=== PATIENT | male | born 1985 | race African-American/Black ===

== ENCOUNTER 2017-06-12 12:38 | Emergency (ER) | payer MEDICAID ==
[~2017-06-12] VITALS: Ht 182.9 cm; Wt 82.8 kg
[2017-06-12 13:14] LABS: CLARITY,URINE SLIGHTLY CLOUDY (Clear); COLOR,URINE YELLOW (Yellow); GLUCOSE, URINE NEGATIVE (Neg); KETONES,URINE TRACE mg/dl (Neg); LEUKOCYTE ESTERASE ,URINE NEGATIVE (Neg); NITRITES, URINE NEGATIVE (Neg); OCCULT BLOOD,URINE MODERATE (Neg); PROTEIN,URINE 30 mg/dl (Neg)
[2017-06-12 13:28] LABS: UA COLLECTION TYPE CLN CATCH MIDSTREAM
[2017-06-12 13:29] LABS: ALANINE AMINOTRANSFERASE 39 U/L (12-78); ALBUMIN 3.9 G/DL (3.4-5.0); ALBUMIN/GLOBULIN RATIO 0.9 (1.1-1.5); ALKALINE PHOSPHATASE 74 IU/L (46-116); ANION GAP 10 (8-16); ASPARTATE AMINO TRANSFERASE 26 U/L (10-37); BILIRUBIN,TOTAL 0.3 MG/DL (0.1-1.0); BLOOD UREA NITROGEN 11 MG/DL (7-18); BUN/CREATININE RATIO 9.5 (5.4-32.0); CALCIUM 9.1 MG/DL (8.5-10.1); CHLORIDE 100 MMOL/L (99-107); CREATININE 1.16 MG/DL (0.60-1.10); GLUCOSE 93 MG/DL (70-104); POTASSIUM 3.6 MMOL/L (3.5-5.1); SODIUM 139 MMOL/L (135-145); TOTAL CARBON DIOXIDE 28.9 MMOL/L (24-32); TOTAL PROTEIN 8.4 G/DL (6.4-8.2); eGFR 88 ML/MIN
[2017-06-12 13:29] LABS: BACTERIA,URINE NONE SEEN /HPF (Neg); MUCUS STRANDS MANY /LPF (Neg); SQUAMOUS EPITHELIAL CELL,UR FEW /LPF (FEW); WBC,URINE 0-4 /HPF (0-4)
[2017-06-12 13:30] LABS: HYALINE CASTS 0-3 /LPF (NEGATIVE)
[2017-06-12 13:32] LABS: BASOPHILS % (AUTO) 0.3 % (0-1); EOSINOPHILS % (AUTO) 0.4 % (0-6); HEMATOCRIT 43.7 % (42.0-52.0); HEMOGLOBIN 14.4 g/dl (14.0-17.9); LYMPHOCYTES # (AUTO) 1.6 X10'3 (1.1-4.8); LYMPHOCYTES % (AUTO) 30.9 % (21-51); MEAN CORPUSCULAR HEMOGLOBIN 27.5 PG (27.0-31.0); MEAN CORPUSCULAR VOLUME 83.3 FL (78-98); MONOCYTES # (AUTO) 0.9 X10'3 (0-0.9); MONOCYTES % (AUTO) 17.6 % (2-12); NEUTROPHILS # (AUTO) 2.7 X10'3 (1.8-7.7); NEUTROPHILS % (AUTO) 50.8 % (42-75); PLATELET COUNT 238 X10'3 (140-440); RED BLOOD COUNT 5.24 X10'6 (4.70-6.10); RED CELL DISTRIBUTION WIDTH 14.1 % (11.5-14.5); WHITE BLOOD COUNT 5.2 X10'3 (4.5-11.0)
[2017-06-12 14:13] LABS: TOTAL CELLS COUNTED 100
[2017-06-12 14:15] LABS: PLATELET ESTIMATE NORMAL
[2017-06-12] MEDS ORDERED: albuterol 2.5 MG/3 ML nebule ONE (14:29)
[2017-06-12] MEDS ORDERED: albuterol 2.5 MG/3 ML nebule NEB ONE (14:30)
[2017-06-12] MEDS ORDERED: ALBU18HF2 INH (14:44)
[2017-06-12 15:05] VITALS: BP 133/87
== END 2017-06-12 15:07 | disposition home or self-care (01) ==
LOC: ER 12:38
DX: J98.01 Acute bronchospasm (principal); R05 Cough; Z88.8 Allergy status to other drugs, medicaments and biological substances
CPT/HCPCS: 36415; 80053; 81001; 85025; 85610; 94640; 94760; 99284

== ENCOUNTER 2017-09-27 10:11 | Emergency (ER) | payer MEDICAID ==
[~2017-09-27] VITALS: Ht 182.9 cm; Wt 83.0 kg
[~2017-09-27 10:11] MED LIST: ALBU18HF2 INH; NAPR-56 PO; TRAM50TA2 PO
[2017-09-27 10:27] VITALS: BP 126/72
[2017-09-27] MEDS ORDERED: TOBR5DRO2 OP (11:42)
== END 2017-09-27 11:51 | disposition home or self-care (01) ==
LOC: ER 10:12
DX: H10.9 Unspecified conjunctivitis (principal); Z88.8 Allergy status to other drugs, medicaments and biological substances; Z79.899 Other long term (current) drug therapy
CPT/HCPCS: 99283

== ENCOUNTER 2019-10-06 19:54 | Emergency (ER) | payer MEDICAID ==
[~2019-10-06] VITALS: Ht 182.9 cm; Wt 90.9 kg
[~2019-10-06 19:54] MED LIST changes: -NAPR-56 PO; +TOBR5DRO2 OP; -TRAM50TA2 PO
[2019-10-06 19:57] VITALS: BP 137/96
[2019-10-06] MEDS ORDERED: FLUT16SP2 BOTHNARES (20:05)
[2019-10-06] MEDS ORDERED: LORA10CA PO (20:05)
[2019-10-06] MEDS ORDERED: ALBU8HFA PO (20:05)
== END 2019-10-06 20:13 | disposition home or self-care (01) ==
LOC: ER 19:55
DX: J30.9 Allergic rhinitis, unspecified (principal); F17.200 Nicotine dependence, unspecified, uncomplicated; Z88.8 Allergy status to other drugs, medicaments and biological substances; Z79.899 Other long term (current) drug therapy
CPT/HCPCS: 99283

== ENCOUNTER 2024-09-14 22:18 | Emergency (ER) | payer MEDICAID ==
[~2024-09-14] VITALS: Ht 185.4 cm; Wt 94.8 kg
[~2024-09-14 22:18] MED LIST changes: +FLUT16SP2 BOTHNARES; +LORA10CA PO
[2024-09-14 22:36] VITALS: BP 148/100
[2024-09-14] MEDS ORDERED: PRED20TA PO (22:48)
[2024-09-14] MEDS ORDERED: ALBU18HF2 INH (22:48)
[2024-09-14] MEDS: albuterol 2.5 MG/3 ML nebule NEB ONE (23:07)
[2024-09-14 23:08] VITALS: TEMP 99.3
[2024-09-14 23:09] VITALS: PULSE 96; RESP 18; O2SAT 97
[2024-09-14 23:13] VITALS: PULSE 84; RESP 18; O2SAT 99
[2024-09-15] MEDS ORDERED: ALBU18HF2 INH (14:07)
[2024-09-15] MEDS ORDERED: PRED20TA PO (14:07)
== END 2024-09-14 23:15 | disposition home or self-care (01) ==
LOC: ER 22:18
DX: J45.901 Unspecified asthma with (acute) exacerbation (principal); Z88.8 Allergy status to other drugs, medicaments and biological substances
CPT/HCPCS: 93005; 94640; 99283

== ENCOUNTER 2024-09-15 12:59 | Emergency (ER) | payer MEDICAID ==
[~2024-09-15] VITALS: Ht 185.4 cm; Wt 113.6 kg
[~2024-09-15 12:59] MED LIST changes: +PRED20TA PO
[2024-09-15] MEDS: ipratropium/albuterol 3ml nebule NEB ONE (13:18)
[2024-09-15 13:19] VITALS: PULSE 78; RESP 18; O2SAT 98
[2024-09-15 13:22] VITALS: TEMP 97.5
[2024-09-15 13:25] VITALS: PULSE 86; RESP 19; O2SAT 98
[2024-09-15] MEDS ORDERED: PRED20TA PO (14:07)
[2024-09-15] MEDS ORDERED: ALBU18HF2 INH (14:07)
[2024-09-15 14:14] VITALS: BP 139/98; PULSE 74; RESP 15; O2SAT 98
[2024-09-15] MEDS: predniSONE 20 mg tablet PO ONE (14:14)
== END 2024-09-15 19:46 | disposition home or self-care (01) ==
LOC: ER 12:59
DX: J45.901 Unspecified asthma with (acute) exacerbation (principal); Z88.8 Allergy status to other drugs, medicaments and biological substances
CPT/HCPCS: 94640; 99283; J7512; 94760

== ENCOUNTER 2024-09-18 19:22 | Emergency (ER) | payer MEDICAID ==
[~2024-09-18] VITALS: Ht 185.4 cm; Wt 74.2 kg
[2024-09-18 19:29] VITALS: BP 146/98; PULSE 103; RESP 20; TEMP 97.6; O2SAT 98
== END 2024-09-18 20:43 | disposition left against medical advice (07) ==
LOC: ER 19:23
DX: R06.02 Shortness of breath (principal); R05.9 Cough, unspecified; Z88.8 Allergy status to other drugs, medicaments and biological substances; Z53.21 Procedure and treatment not carried out due to patient leaving prior to being seen by health care provider

== ENCOUNTER 2024-10-06 11:44 | Emergency (ER) | payer MEDICAID ==
[~2024-10-06] VITALS: Ht 185.4 cm; Wt 91.4 kg
[2024-10-06 11:44] VITALS: BP 108/60; PULSE 80; RESP 16; TEMP 98; O2SAT 100
--- NOTE | 2024-10-06 11:51 | Physician Documentation ---
History of Present Illness ~ Chief Complaint: Head Injury [facility]ated [facility] OK to notify your PCP?: No Primary Medical Doctor: [facility] Patient presents with a complaint of an abrasion on the left side of his face. Smells of alcohol states he does not how I encouraged the abrasion. Tetanus within 5 years?: Yes Medication Reconciliation Allergies: Coded Allergies: pseudoephedrine (Verified Allergy, Severe, ANGIOEDEMA, 09/18/24) Scheduled Albuterol Sulfate (Ventolin Hfa), 2 PUFFS INH Q4HPRN Albuterol Sulfate (Ventolin Hfa), 2 PUFFS INH Q4HPRN Fluticasone Propionate (Flonase), 2 SPRAYS BOTHNARES DAILY Loratadine (Claritin), 1 CAP PO DAILY Prednisone* (Prednisone*), 2 TAB PO DAILY Tobramycin Sulfate/Dexameth (Tobradex Eye Drops), 5 ML OP Q6H Past Medical History Past Medical History: Asthma Past Surgical History: no surgical history Alcohol Use: None Drug Use: none Lives with: Family Lives In: Home Occupation: employed Physical Exam Vital Signs: Temperature: 98.0, Source: Temporal, Heart Rate: 80, Respiratory Rate: 16, BP: 108/60, Pulse Oximetry: 100, Weight: 91.400 Oxygen Flow Rate: 0 Physical Exam General: Alert, no apparent distress. HEENT: PERRL, EOMI, no injection, moist mucous membranes. Psychiatric: Normal mood and affect. Skin: Normal color, warm and dry. No edema, no ecchymosis. Progress Results/Orders Results/Orders Vital Signs 10/06/24 11:44 Temp 98.0 Pulse 80 Resp 16 B/P (MAP) 108/60 Pulse Ox 100 O2 Flow Rate 0 Medical Decision Making Findings k Departure Disposition: 07 LEFT AWOL/ELOPED Impression: Primary Impression: Superficial bruising Referrals: NO PRIMARY CARE PROVIDER (PCP) Signature Scribe Signature: 6 Attestation: The note accurately reflects work and decisions made by me.Shaun Tristan NP 10/06/24 14:46 SHAUN MENDES NP October 06, 2024 11:51
== END 2024-10-06 13:25 | disposition left against medical advice (07) ==
LOC: ER 11:44
DX: S00.83XA Contusion of other part of head, initial encounter (principal); Z88.8 Allergy status to other drugs, medicaments and biological substances; J45.909 Unspecified asthma, uncomplicated; X58.XXXA Exposure to other specified factors, initial encounter; Y93.89 Activity, other specified; Y92.89 Other specified places as the place of occurrence of the external cause; Y99.8 Other external cause status
CPT/HCPCS: 99283

== ENCOUNTER 2024-10-11 07:26 | Emergency (ER) | payer MEDICAID ==
[~2024-10-11] VITALS: Ht 185.4 cm; Wt 92.4 kg
[2024-10-11 07:27] VITALS: TEMP 97.8
--- NOTE | 2024-10-11 07:48 | Physician Documentation ---
History of Present Illness ~ General Chief Complaint: See Chief Complaint Stated Complaint: ABD PAIN Time Seen by MD: 07:37 Primary Medical Doctor: [facility] Source: patient Mode of Arrival: POV Exam Limitations: no limitations History of Present Illness Initial Comments Chief Complaint: Bruising over right lower abdominal wall Caveat: None Independent Historians: None History of Present Illness: Patient is a 47-year-old man who comes in complaining of bruising over his right lower abdominal wall. Patient denies any trauma. Patient noted this two weeks ago and also has some bruising over the knees. Patient denies any medications, aspirin use. Patient's pain is six to 8/10 over the right lower abdominal wall. Patient denies the intra-abdominal pain. No nausea or vomiting. No fever. Patient denies any anticoagulant use. Patient denies daily alcohol use. Review of systems: All systems were reviewed and are negative except for what is indicated in the history of present illness. Past Medical History: None the patient Past Surgical History: Noncontributory Social History: Denies alcohol use, denies tobacco use, denies drug use Medications: Reviewed as documented Nursing Notes Allergies: Reviewed as documented in Nursing Notes Medication Reconciliation Allergies: Coded Allergies: pseudoephedrine (Verified Allergy, Severe, ANGIOEDEMA, 09/18/24) Scheduled Albuterol Sulfate (Ventolin Hfa), 2 PUFFS INH Q4HPRN Albuterol Sulfate (Ventolin Hfa), 2 PUFFS INH Q4HPRN Fluticasone Propionate (Flonase), 2 SPRAYS BOTHNARES DAILY Loratadine (Claritin), 1 CAP PO DAILY Prednisone* (Prednisone*), 2 TAB PO DAILY Tobramycin Sulfate/Dexameth (Tobradex Eye Drops), 5 ML OP Q6H Past Medical History Past Medical History: Asthma Past Surgical History: no surgical history Alcohol Use: None Drug Use: none Lives with: Family Lives In: Home Occupation: employed Review of Systems All Other Systems at this time: Reviewed and Negative ROS Patient denies any other acute symptoms other than above. All other systems are negative Physical Exam Physical Exam Vital Signs: Temperature: 97.8, Source: Oral, Heart Rate: 92, Respiratory Rate: 16, BP: 153/94, Pulse Oximetry: 99, Weight: 92.400 Oxygen Flow Rate: 0 Pulse Oximetry Reflects: adequate oxygenation Physical Exam General Appearance: No distress HEENT: Normal OP, moist oral mucosa, PERRL, EOMI, no bleeding from gums Neck: supple, normal ROM, trachea midline Pulmonary: No respiratory distress, CTA, BS equal Cardiac: RRR, no murmur, rub or gallop, GI: nondistended, soft, nontender, normal bowel sounds, no guarding, no rebound , ecchymosis and hematoma over the right lower abdominal wall Back: No evidence of ecchymosis, hourly normal-appearing Extremities: normal ROM, no swelling, non-tender Skin: intact, dry, warm, no rashes, ecchymosis and hematoma over the right lower abdominal wall, no other areas of ecchymosis identified. Neuro: AAOx3, speech is clear, no focal motor weakness Psych: normal affect, good eye contact, no apparent hallucination, normal speech Progress Results/Orders Results/Orders Orders - MARIE SALEH MD Urinalysis, Cult If Indicated (10/11/24 07:48) Completed Orders - MARIE SALEH MD Cbc/Diff (10/11/24 07:48) BMP (10/11/24 07:48) PTT (10/11/24 07:48) Pt Inr (10/11/24 07:48) Lipase (10/11/24 07:48) Vital Signs 10/11/24 07:27 Temp 97.8 Pulse 92 Resp 16 B/P (MAP) 153/94 Pulse Ox 99 O2 Flow Rate 0 Laboratory Tests Test 10/11/24 08:12 White Blood Count 6.4 Red Blood Count 4.74 Hemoglobin 12.6 L Hematocrit 38.7 L Mean Corpuscular Volume 81.7 Mean Corpuscular Hemoglobin 26.6 L Mean Corpuscular Hemoglobin Concent 32.6 L Red Cell Distribution Width 15.1 H Platelet Count 250 Mean Platelet Volume 7.5 Neutrophils (%) (Auto) 55.2 Lymphocytes (%) (Auto) 29.3 Monocytes (%) (Auto) 9.2 Eosinophils (%) (Auto) 5.3 Basophils (%) (Auto) 1.0 Neutrophils # (Auto) 3.5 Lymphocytes # (Auto) 1.9 Monocytes # (Auto) 0.6 Eosinophils # (Auto) 0.3 Basophils # (Auto) 0.1 CBC Comment Prothrombin Time 10.4 INR International Normalized Ratio 1.0 Activated Partial Thromboplast Time 28 Coagulation Comments Sodium Level 144 Potassium Level 3.6 Chloride Level 106 Carbon Dioxide Level 30.4 Anion Gap 8 Blood Urea Nitrogen 8 Creatinine 0.96 Estimated GFR/1.73 m2 > 90 BUN/Creatinine Ratio 8.3 L Glucose Level 83 Calcium Level 8.4 L Albumin 3.3 L Lipase 10 L Chemistry Comments Medical Decision Making Findings Differential diagnosis includes but is not limited to: Trauma, coagulopathy, aspirin use, thrombocytopenia, bleeding disorder Laboratory data independent interpretation: CBC: Unremarkable CMP: Unremarkable Coags: Normal Emergency department course/medical decision-making: Patient is presenting with hematoma over the right lower abdominal wall. Patient does not have a coagulopathy or is using aspirin or Motrin. Patient likely had some trauma that he does not recall. Patient's exam is consistent with a hematoma. Apply warm compresses and take Advil and Tylenol for pain. Patient was stable for discharge. Departure Time of Disposition: 08:57 Disposition: 01 HOME / SELF CARE / HOMELESS Impression: Primary Impression: Hematoma Condition: Stable Discharge Instructions: Hematoma, [id number] Additional Instructions: TAKE ADVIL AND TYLENOL FOR PAIN. APPLY WARM COMPRESSES. THIS WILL TAKE SEVERAL WEEKS TO RESOLVE. THE CAUSE HAS NOT BEEN IDENTIFIED. YOU DO NOT HAVE A COAGULOPATHY OR BLEEDING DISORDER. Education Educated: Patient Educated regarding: diagnosis, treatment, need for follow up Signature Scribe Signature: NO SCRIBE Attestation: NO SCRIBE MARIE SALEH MD October 11, 2024 07:48
[2024-10-11 08:35] LABS: BASOPHILS # (AUTO) 0.1 X10'3 (0-0.2); EOSINOPHILS # (AUTO) 0.3 X10'3 (0-0.9); EOSINOPHILS % (AUTO) 5.3 % (0-6); HEMATOCRIT 38.7 % (42.0-52.0); HEMOGLOBIN 12.6 g/dl (14.0-17.9); LYMPHOCYTES # (AUTO) 1.9 X10'3 (1.1-4.8); LYMPHOCYTES % (AUTO) 29.3 % (21-51); MEAN CORPUSCULAR HEMOGLOBIN 26.6 PG (27.0-31.0); MEAN CORPUSCULAR HGB CONC 32.6 g/dL (33.0-36.5); MEAN CORPUSCULAR VOLUME 81.7 FL (78-98); MEAN PLATELET VOLUME 7.5 FL (7.4-10.4); MONOCYTES # (AUTO) 0.6 X10'3 (0-0.9); MONOCYTES % (AUTO) 9.2 % (2-12); NEUTROPHILS # (AUTO) 3.5 X10'3 (1.8-7.7); NEUTROPHILS % (AUTO) 55.2 % (42-75); PLATELET COUNT 250 X10'3 (140-440); RED BLOOD COUNT 4.74 X10'6 (4.70-6.10); RED CELL DISTRIBUTION WIDTH 15.1 % (11.5-14.5); WHITE BLOOD COUNT 6.4 X10'3 (4.5-11.0)
[2024-10-11 08:37] LABS: ALBUMIN 3.3 G/DL (3.4-5.0); ANION GAP 8 (8-16); BLOOD UREA NITROGEN 8 MG/DL (7-18); BUN/CREATININE RATIO 8.3 (10.0-20.0); CALCIUM 8.4 MG/DL (8.5-10.1); CHLORIDE 106 MMOL/L (99-107); CREATININE 0.96 MG/DL (0.60-1.10); GLUCOSE 83 MG/DL (70-104); LIPASE 10 U/L (16-77); POTASSIUM 3.6 MMOL/L (3.5-5.1); SODIUM 144 MMOL/L (135-145); TOTAL CARBON DIOXIDE 30.4 MMOL/L (24-32); eCRCL 117 ML/MIN; eGFR > 90 ML/MIN
[2024-10-11 08:39] LABS: APTT 28 SECONDS (22-32); PROTHROMBIN TIME 10.4 SECONDS (9.0-12.0)
[2024-10-11 09:01] VITALS: BP 140/100; PULSE 85; RESP 18; O2SAT 98
== END 2024-10-11 07:50 | disposition home or self-care (01) ==
LOC: ER 07:27
DX: S30.1XXA Contusion of abdominal wall, initial encounter (principal); J45.909 Unspecified asthma, uncomplicated; Z88.8 Allergy status to other drugs, medicaments and biological substances; Z79.899 Other long term (current) drug therapy; X58.XXXA Exposure to other specified factors, initial encounter; Y93.89 Activity, other specified; Y92.89 Other specified places as the place of occurrence of the external cause; Y99.8 Other external cause status
CPT/HCPCS: 36415; 80048; 83690; 85025; 85610; 85730; 99282; 99283

== ENCOUNTER 2024-11-02 15:02 | Emergency (ER) | payer MEDICAID ==
[~2024-11-02] VITALS: Ht 185.4 cm; Wt 87.7 kg
--- NOTE | 2024-11-02 16:34 | Physician Documentation ---
History of Present Illness ~ Chief Complaint: Foot pain Stated Complaint: BURNING FEET Time Seen by MD: 16:08 Primary Medical Doctor: [facility] HPI Bail known homeless person reports increased burning and tingling in his bilateral lower extremities. States he has a walk a lot in his developed this pain. He thinks it is related to a previous blister. He also states he might be prediabetic. Day of Onset: November 02, 2024 Tetanus witin 5 years: Yes Medication Reconciliation Allergies: Coded Allergies: pseudoephedrine (Verified Allergy, Severe, ANGIOEDEMA, 11/02/24) Scheduled Albuterol Sulfate (Ventolin Hfa), 2 PUFFS INH Q4HPRN Albuterol Sulfate (Ventolin Hfa), 2 PUFFS INH Q4HPRN Fluticasone Propionate (Flonase), 2 SPRAYS BOTHNARES DAILY Loratadine (Claritin), 1 CAP PO DAILY Prednisone* (Prednisone*), 2 TAB PO DAILY Tobramycin Sulfate/Dexameth (Tobradex Eye Drops), 5 ML OP Q6H Past Medical History Past Medical History: Asthma Past Surgical History: no surgical history Alcohol Use: None Drug Use: none Lives with: Family Lives In: Home Occupation: employed Review of Systems All Other Systems at this time: Reviewed and Negative ROS As stated above in the HPI, otherwise all systems are reviewed and negative. Physical Exam Vital Signs: Temperature: 99.1, Source: Temporal, Heart Rate: 93, Respiratory Rate: 20, BP: 144/88, Pulse Oximetry: 99, Weight: 87.700 Oxygen Flow Rate: 0 Physical Exam General: Alert, no apparent distress. Extremities: Normal range of motion, no deformity. Neurologic: Oriented x4. Psychiatric: Normal mood and affect. Skin: Normal color, warm and dry. No edema, no ecchymosis. Progress Results/Orders Results/Orders Orders - SHAUN MENDES NP Accucheck (11/02/24 ) Vital Signs 11/02/24 15:24 Temp 99.1 Pulse 93 Resp 20 B/P (MAP) 144/88 Pulse Ox 99 O2 Flow Rate 0 Departure Disposition: 01 HOME / SELF CARE / HOMELESS Impression: Primary Impression: Foot pain Condition: Stable Referrals: NO PRIMARY CARE PROVIDER (PCP) Signature Scribe Signature: g Attestation: The note accurately reflects work and decisions made by me.Shaun Mendes - HATTIE 11/02/24 16:34 SHAUN MENDES NP November 02, 2024 16:34
[2024-11-02 17:03] VITALS: BP 146/84; PULSE 76; RESP 16; TEMP 99.1; O2SAT 97
== END 2024-11-02 17:05 | disposition home or self-care (01) ==
LOC: ER 15:03
DX: M79.672 Pain in left foot (principal); M79.671 Pain in right foot; J45.909 Unspecified asthma, uncomplicated; Z88.8 Allergy status to other drugs, medicaments and biological substances; Z59.00 Homelessness unspecified; Z79.899 Other long term (current) drug therapy
CPT/HCPCS: 82948; 99282

== ENCOUNTER 2024-11-04 19:49 | Emergency (ER) | payer MEDICAID ==
[~2024-11-04] VITALS: Ht 188 cm; Wt 95.5 kg
[2024-11-04 19:54] VITALS: BP 138/107; PULSE 113; RESP 24; O2SAT 95
--- NOTE | 2024-11-04 21:35 | Physician Documentation ---
History of Present Illness ~ Chief Complaint: Foot pain Stated Complaint: FOOT PAIN Time Seen by MD: 21:15 Primary Medical Doctor: [facility] This 39-year-old male with history of diabetes who presents with one month of bilateral burning pain to feet. Patient reports no other acute symptoms or concerns. Tetanus witin 5 years: Yes (2020) Medication Reconciliation Allergies: Coded Allergies: pseudoephedrine (Verified Allergy, Severe, ANGIOEDEMA, 11/04/24) Scheduled Albuterol Sulfate (Ventolin Hfa), 2 PUFFS INH Q4HPRN Albuterol Sulfate (Ventolin Hfa), 2 PUFFS INH Q4HPRN Fluticasone Propionate (Flonase), 2 SPRAYS BOTHNARES DAILY Gabapentin (Neurontin), 1 CAP PO Q8H Loratadine (Claritin), 1 CAP PO DAILY Prednisone* (Prednisone*), 2 TAB PO DAILY Tobramycin Sulfate/Dexameth (Tobradex Eye Drops), 5 ML OP Q6H Past Medical History Past Medical History: Asthma, Diabetes Past Surgical History: no surgical history Alcohol Use: None Drug Use: none Lives with: Family Lives In: Home Occupation: employed Review of Systems ROS Burning pain and feet as stated above in the HPI, otherwise all systems are reviewed and negative. Physical Exam Vital Signs: Temperature: 98.4, Source: Oral, Heart Rate: 113, Respiratory Rate: 24, BP: 138/107, Pulse Oximetry: 95, Weight: 95.450 Physical Exam VITALS: Reviewed and as above. GENERAL: Alert, nontoxic appearing, no apparent distress. RESPIRATORY: No increased work of breathing, no respiratory distress, speaking in full clear sentences SKIN: Skin of bilateral feet dry intact, distal pulses intact, brisk capillary refill in toes of feet Progress Results/Orders Results/Orders Completed Orders - LIDIA MIR Gabapentin Capsule (Neurontin Capsule) (11/04/24 21:40) Medications Received in ER Medications (Trade) Dose Ordered Sig/Makayla Route PRN Reason Start Time Stop Time Status Last Admin Dose Admin (Neurontin capsule) 300 mg ONCE ONCE PO 11/04/24 21:40 11/04/24 21:41 DC 11/04/24 23:06 300 MG Vital Signs 11/04/24 11/04/24 19:54 23:03 Temp 98.4 98.4 Pulse 113 Resp 24 B/P (MAP) 138/107 Pulse Ox 95 Medical Decision Making Findings This is a 39-year-old male with history of diabetes presented with one month of burning pain to bilateral feet, symptoms are consistent with peripheral neuropathy especially given patient's history of diabetes, circulation appear to be intact with brisk capillary refill to the toes and strong pedal pulses. The skin of the feet were intact without evidence of injury. Patient was otherwise well-appearing with benign physical exam, tachycardia on triage likely related to patient's recent methamphetamine use. Patient initiated on gabapentin for n europathic pain in structure to follow up with primary care provider for further management of neuropathic pain. Patient provided return to care precautions. Foot Diff Dx:Considerations: Include: Abrasion, Arthritis, Cellulitis, Gout, Ingrown toenail, Laceration, Neurovascular injury, Sprain, Septic, Ulcer Departure Disposition: HOME / SELF CARE / HOMELESS Impression: Primary Impression: Foot pain Qualified Codes: M79.671 - Pain in right foot; M79.672 - Pain in left foot Condition: Improved Discharge Instructions: Peripheral Neuropathy Additional Instructions: I believe your pain may be from condition called peripheral neuropathy most likely related to your diabetes, you will need to see your primary care provider for further follow up and continue the medication I am starting you on. You will receive one dose of this medication tonight, take two doses of the medication tomorrow, and then the day after that begin taking three doses each day. Please follow up with your primary care provider in the next few days. Please return to the emergency department for any new or worsening concerning symptoms. Referrals: NO PRIMARY CARE PROVIDER (PCP) Prescriptions Gabapentin (Neurontin) 300 Mg Capsule 1 CAP PO Q8H for 30 Days, #90 CAP 0 Refills Take two doses on the first 1st day (11/05/24), each dose 12 hours apart. Prov: LIDIA MIR 11/04/24 Education Educated: Patient Educated regarding: diagnosis, treatment, prognosis, need for follow up Signature Scribe Signature: No scribe Attestation: The note accurately reflects work and decisions made by me.JJ Duque 11/05/24 01:41 LIDIA MIR Nov 04, 2024 21:35
[2024-11-04] MEDS ORDERED: GABA300C PO (21:38)
[2024-11-04 23:03] VITALS: TEMP 98.4
[2024-11-04] MEDS: gabapentin 300mg capsule PO ONE (23:06)
== END 2024-11-04 23:09 | disposition home or self-care (01) ==
LOC: ER 19:50
DX: M79.671 Pain in right foot (principal); M79.672 Pain in left foot
CPT/HCPCS: 99283

== ENCOUNTER 2024-11-15 04:24 | Emergency (ER) | payer MEDICAID ==
[~2024-11-15] VITALS: Ht 185.4 cm; Wt 91.0 kg
[~2024-11-15 04:24] MED LIST changes: +GABA300C PO
--- NOTE | 2024-11-15 05:20 | Physician Documentation ---
History of Present Illness ~ General Chief Complaint: Anxiety Stated Complaint: ANXIETY Time Seen by MD: 04:47 Primary Medical Doctor: [facility] Source: patient Mode of Arrival: EMS Exam Limitations: no limitations History of Present Illness Initial Comments Patient who states he smoked meth about an hour ago. He drinks about 4 cups of coffee per day and has occasional alcohol. Smokes 2-3 cigarettes per day. States he feels palpitations. He had a similar feeling last week. He had smoked meth on that day as well. No chest pain. No shortness of breath. Medication Reconciliation Allergies: Coded Allergies: pseudoephedrine (Verified Allergy, Severe, ANGIOEDEMA, 11/15/24) Scheduled Albuterol Sulfate (Ventolin Hfa), 2 PUFFS INH Q4HPRN Albuterol Sulfate (Ventolin Hfa), 2 PUFFS INH Q4HPRN Fluticasone Propionate (Flonase), 2 SPRAYS BOTHNARES DAILY Gabapentin (Neurontin), 1 CAP PO Q8H Loratadine (Claritin), 1 CAP PO DAILY Prednisone* (Prednisone*), 2 TAB PO DAILY Tobramycin Sulfate/Dexameth (Tobradex Eye Drops), 5 ML OP Q6H Past Medical History Past Medical History: No Pertinent History, Asthma, Diabetes Past Surgical History: no surgical history Smoking Status: Current every day smoker Alcohol Use: None Drug Use: none Lives with: Family Lives In: Home Occupation: employed Review of Systems All Other Systems at this time: Reviewed and Negative Physical Exam Physical Exam Vital Signs: Temperature: 98.0, Source: Oral, Heart Rate: 83, Respiratory Rate: 18, BP: 150/90, Pulse Oximetry: 99, Weight: 91.000 Physical Exam General: Alert and oriented x4, well-appearing, well-nourished, no acute distress HEENT: Normocephalic, atraumatic, no visible or palpable masses or depression, extraocular movements intact, PERRLA, no scleral icterus, neck is supple and nontender, mucous membranes moist Heart: Regular rate and rhythm, no murmurs, rubs or gallops Lungs: Clear to auscultation bilaterally, normal work of breathing Abdomen: Soft, nontender, no palpable masses, normal bowel sounds Back: Spine is without deformity or tenderness, no CVA tenderness Extremities: Full range of motion, no acute deformity, peripheral pulses intact, no cyanosis or edema Musculoskeletal: Normal gait, normal tone Neurologic: Cranial nerves 2-12 are intact, reflexes normal Psychiatric: Alert and oriented x4, judgment and insight normal, normal mood and affect Skin: Good turgor, no rashes Progress Results/Orders Results/Orders Completed Orders - JUAREZ YOUNG MD Electrocardiogram (11/15/24 ) Vital Signs 11/15/24 11/15/24 04:26 04:36 Temp 98.0 Pulse 83 Resp 18 18 B/P (MAP) 150/90 Pulse Ox 99 Departure Impression: Primary Impression: Palpitations Additional Impression: Methamphetamine abuse Additional Impression Text EKG: Sinus rhythm, rate of 86, no ST changes, QTC 439 Patient in with meth use, caffeine use, occasional alcohol. EKG unremarkable. Well-appearing and normal exam. Counseled on the risks of drug use and also caffeine. Discharging home in good condition. Follow up with PCP in the next 7-10 days or return here if new or worsening symptoms. Condition: Stable Discharge Instructions: Methamphetamines Use Disorder, Palpitations, [id number] Additional Instructions: You need to consider rehab for your drug addiction. Cut back on your caffeine intake. Follow-up with your primary care doctor in the next 1-2 weeks. Return here if new or worsening symptoms prior to follow-up. Referrals: NO PRIMARY CARE PROVIDER (PCP) Education Educated: Patient Educated regarding: diagnosis, treatment, prognosis, need for follow up Signature Scribe Signature: No scribe Attestation: No scribe JUAREZ YOUNG MD Nov 15, 2024 05:20
--- NOTE | 2024-11-15 05:46 | ELECTROCARDIOGRAPH REPORT ---
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
[2024-11-15 06:04] VITALS: BP 129/85; PULSE 85; RESP 16; TEMP 98.4; O2SAT 98
[2024-11-15] MEDS ORDERED: KEN0.1O TOP (18:45)
== END 2024-11-15 06:07 | disposition home or self-care (01) ==
LOC: ER 04:24
DX: R00.2 Palpitations (principal); F15.10 Other stimulant abuse, uncomplicated; F41.9 Anxiety disorder, unspecified; F17.210 Nicotine dependence, cigarettes, uncomplicated; Z88.8 Allergy status to other drugs, medicaments and biological substances; Z79.899 Other long term (current) drug therapy
CPT/HCPCS: 93005; 99283

== ENCOUNTER 2024-11-15 17:53 | Emergency (ER) | payer MEDICAID ==
[~2024-11-15] VITALS: Ht 182.9 cm; Wt 87.4 kg
[2024-11-15 18:12] VITALS: BP 150/93; PULSE 100; RESP 15; O2SAT 99
--- NOTE | 2024-11-15 18:25 | Physician Documentation ---
History of Present Illness ~ General Chief Complaint: General Stated Complaint: "BUBBLING FEELING" Time Seen by MD: 18:33 Primary Medical Doctor: [facility] Source: patient Mode of Arrival: EMS Exam Limitations: no limitations History of Present Illness Initial Comments 39-year-old male brought in by EMS for bubbly sensation to chest and head". Patient started to have the sensation after smoking marijuana he is uncertain if it was laced. Patient denies any significant cardiac or respiratory history. Patient takes no medications. Patient also has a rash to his chest is homeless and has been living outside and could have poison oak. Medication Reconciliation Allergies: Coded Allergies: pseudoephedrine (Verified Allergy, Severe, ANGIOEDEMA, 11/15/24) Scheduled Albuterol Sulfate (Ventolin Hfa), 2 PUFFS INH Q4HPRN Albuterol Sulfate (Ventolin Hfa), 2 PUFFS INH Q4HPRN Fluticasone Propionate (Flonase), 2 SPRAYS BOTHNARES DAILY Gabapentin (Neurontin), 1 CAP PO Q8H Loratadine (Claritin), 1 CAP PO DAILY Prednisone* (Prednisone*), 2 TAB PO DAILY Tobramycin Sulfate/Dexameth (Tobradex Eye Drops), 5 ML OP Q6H Triamcinolone Acetonide 0.1% Crm* (Kenalog 0.1% Crm*), 1 APPLIC TOP Q12H Past Medical History Past Medical History: No Pertinent History, Asthma, Diabetes Past Surgical History: no surgical history Alcohol Use: None Drug Use: none Lives with: Family Lives In: Home Occupation: employed Review of Systems All Other Systems at this time: Reviewed and Negative Constitutional: Reports: see HPI Physical Exam Physical Exam Vital Signs: RN Vital Signs have been reviewed: Yes, Heart Rate: 100, Respiratory Rate: 15, BP: 150/93, Pulse Oximetry: 99, Weight: 87.400 Oxygen Flow Rate: 0 General Appearance: alert, WD/WN, no apparent distress Head: normal inspection; No: tender Neck: full range of motion, normal inspection, trachea midline Respiratory: lungs clear, normal breath sounds, no respiratory distress Chest: no accessory muscle use, chest non-tender Cardiovascular: normal peripheral pulses, regular rate, rhythm, no murmur; No: JVD Skin Papular rash to chest and abdomen with erythema at clearly defined borders Progress Results/Orders Results/Orders Orders - DARIAN,NIEVES K ACCOUNT MANAGER RELIEF Electrocardiogram (11/15/24 18:15) Vital Signs 11/15/24 18:12 Pulse 100 Resp 15 B/P (MAP) 150/93 Pulse Ox 99 O2 Flow Rate 0 EKG/XRAY/CT/US/VASC/MRI EKG : Additional Comment Sinus rhythm at 84 beats per minute normal axis no acute ST abnormalities. Medical Decision Making Additional info obtained from: old records Findings Patient is with active drug use smoked and now has a bubbly feeling patient's EKG due to him showing me that it was a bubbly feeling to the top of his chest into his back is unremarkable for any significant findings. Patient's vital signs are reassuring. Patient is on domicile old and does have some poison oak like rash to his chest and abdomen. Departure Time of Disposition: 18:54 Disposition: 01 HOME / SELF CARE / HOMELESS Impression: Primary Impression: General medical exam Additional Impressions: Methamphetamine abuse Poison oak dermatitis Referrals: NO PRIMARY CARE PROVIDER (PCP) Prescriptions Triamcinolone Acetonide 0.1% Crm* (Kenalog 0.1% Crm*) 1 Applic Tube 1 APPLIC TOP Q12H for 10 Days, #80 GM Prov: NIEVES TABOR NP 11/15/24 Education Educated: Patient Educated regarding: diagnosis, treatment, need for follow up Signature Scribe Signature: No Scribe Attestation: The note accurately reflects work and decisions made by me.Nieves Tabor - FIRMWARE SOFTWARE VERIFICATION ENGINEER 11/15/24 18:54 NIEVES TABOR NP Nov 15, 2024 18:25
[2024-11-15] MEDS ORDERED: KEN0.1O TOP (18:45)
--- NOTE | 2024-11-15 20:00 | RADIOLOGY REPORT ---
CHEST RADIOGRAPH Indication: Palpatations Technique: Single frontal view of the chest was obtained Comparison: None FINDINGS: The cardiac silhouette is unremarkable. The lungs demonstrate peribronchial cuffing. There is no pleu ral effusion. There is no pneumothorax. IMPRESSION: 1. Findings consistent with viral and/or reactive airway disease.
--- NOTE | 2024-11-16 08:13 | ELECTROCARDIOGRAPH REPORT ---
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
== END 2024-11-15 19:54 | disposition home or self-care (01) ==
LOC: ER 17:54
DX: L23.7 Allergic contact dermatitis due to plants, except food (principal); R00.2 Palpitations; F15.10 Other stimulant abuse, uncomplicated; Z59.00 Homelessness unspecified; Z88.8 Allergy status to other drugs, medicaments and biological substances; Z79.899 Other long term (current) drug therapy
CPT/HCPCS: 71045; 93005; 99283

== ENCOUNTER 2024-11-29 19:51 | Emergency (ER) | payer MEDICAID ==
[~2024-11-29] VITALS: Ht 185.4 cm; Wt 78.0 kg
[2024-11-29 19:55] VITALS: TEMP 99.7
--- NOTE | 2024-11-29 20:01 | Physician Documentation ---
History of Present Illness ~ Stated Complaint: CP Time Seen by MD: 19:52 Primary Medical Doctor: [facility] 39-year-old male presents to the ED with a complaint of acute onset chest pain x1 hour. Patient also acknowledges methamphetamine ingestion. Reports shortness of breath and midsternal chest pain.. Denies nausea Medication Reconciliation Allergies: Coded Allergies: pseudoephedrine (Verified Allergy, Severe, ANGIOEDEMA, 11/29/24) Scheduled Albuterol Sulfate (Ventolin Hfa), 2 PUFFS INH Q4HPRN Albuterol Sulfate (Ventolin Hfa), 2 PUFFS INH Q4HPRN Fluticasone Propionate (Flonase), 2 SPRAYS BOTHNARES DAILY Gabapentin (Neurontin), 1 CAP PO Q8H Loratadine (Claritin), 1 CAP PO DAILY Prednisone* (Prednisone*), 2 TAB PO DAILY Tobramycin Sulfate/Dexameth (Tobradex Eye Drops), 5 ML OP Q6H Discontinued Medications Triamcinolone Acetonide 0.1% Crm* (Kenalog 0.1% Crm*), 1 APPLIC TOP Q12H Discontinued Reason: Auto Discontinued Past Medical History Past Medical History: No Pertinent History, Asthma, Diabetes Past Surgical History: no surgical history Alcohol Use: None Drug Use: none Lives with: Family Lives In: Home Occupation: employed Physical Exam Physical Exam General: Alert, no apparent distress. Respiratory: Lungs clear, no respiratory distress. Cardiovascular: tachycardic and rhythm, no murmurs. Gastrointestinal: Soft, nontender, nondistended. Bowels sounds present. Extremities: Normal range of motion, no deformity. Neurologic: Oriented x4. Psychiatric: Normal mood and affect. Skin: Normal color, warm and dry. No edema, no ecchymosis. Progress Results/Orders Results/Orders Orders - SHAUN MENDES [facility] Electrocardiogram (11/29/24 ) Chest,Single View (11/29/24 19:53) Monitor (11/29/24 19:53) Saline Lock (11/29/24 19:53) Oxygen (11/29/24 19:53) Completed Orders - SHAUN MENDES [facility] Electrocardiogram (11/29/24 ) Chest,Single View (11/29/24 19:53) Cbc/Diff (11/29/24 19:53) BMP (11/29/24 19:53) PBNP (11/29/24 19:53) Hs Troponin I W Calculations (11/29/24 19:53) D-Dimer (11/29/24 19:56) Vital Signs 11/29/24 11/29/24 11/29/24 19:55 20:02 20:09 Temp 99.7 Pulse 118 100 Resp 16 16 18 B/P (MAP) 128/82 (97) Pulse Ox 99 99 Laboratory Tests Test 11/29/24 20:00 White Blood Count 5.6 Red Blood Count 4.91 Hemoglobin 13.0 L Hematocrit 39.9 L Mean Corpuscular Volume 81.4 Mean Corpuscular Hemoglobin 26.5 L Mean Corpuscular Hemoglobin Concent 32.6 L Red Cell Distribution Width 14.8 H Platelet Count 305 Mean Platelet Volume 7.5 Neutrophils (%) (Auto) 42.9 Lymphocytes (%) (Auto) 44.5 Monocytes (%) (Auto) 10.2 Eosinophils (%) (Auto) 1.1 Basophils (%) (Auto) 1.3 H Neutrophils # (Auto) 2.4 Lymphocytes # (Auto) 2.5 Monocytes # (Auto) 0.6 Eosinophils # (Auto) 0.1 Basophils # (Auto) 0.1 CBC Comment D-Dimer < 0.19 D-Dimer Comment Sodium Level 141 Potassium Level 3.5 Chloride Level 107 Carbon Dioxide Level 26.2 Anion Gap 8 Blood Urea Nitrogen 14 Creatinine 1.17 H Estimated GFR/1.73 m2 84 BUN/Creatinine Ratio 12.0 Glucose Level 107 H Calcium Level 9.0 Troponin I High Sensitivity 4 Pro-B-Type Natriuretic Peptide < 30 Albumin 3.6 Chemistry Comments Medical Decision Making Findings Patient's laboratory values, EKG and x-ray are all very reassuring without any signs of acute cardiac abnormalities or events. This patient who recently use methamphetamine has been sleeping in the ED minutes after arrival and has not stood. However he is easily arousable. At this time I do not see any reason to preserve pursue any further evaluation. We will recommend to him to stop using methamphetamine Differential Dx:Considerations: Include: angina, aortic dissection, chest wall pain, cholelithiasis, CHF, costochondritis, esophageal reflux/spasm, gastritis, herpes zoster, myocardial infarction, pericarditis, pleuritis, pancreatitis, pneumonia, pneumothorax, pulmonary embolus, other Departure Disposition: HOME / SELF CARE / HOMELESS Impression: Primary Impression: Methamphetamine abuse Additional Impression: Chest wall pain Condition: Stable Discharge Instructions: Nonspecific Chest Pain, Adult Additional Instructions: It is important that you stop using methamphetamine at as it can lead to cardiac problems and . Referrals: NO PRIMARY CARE PROVIDER (PCP) Signature Scribe Signature: g Attestation: Scribed for Shaun Mendes Managing Broker by Shaun Tristan NP . 11/29/24 20:00 SHAUN MENDES NP Nov 29, 2024 20:01
--- NOTE | 2024-11-29 20:03 | ELECTROCARDIOGRAPH REPORT ---
[facility] Test Date: 2024-11-29 Test Time: 20:01:00 Pat Name: OMAYRA TAVAREZ Department: EMERGENCY ROOM Room: Gender: M [employer]: : 1985 Requested By: ARIEL MENDES Order Number: [id number] Reading MD: Dr. Ronnell Mueller Measurements Intervals [place] Rate: 115 P: 61 CA: 163 QRS: 60 QRSD: 89 T: 19 QT: 315 QTc: 436 Interpretive Statements Sinus tachycardia Probable LVH with secondary repol abnrm Electronically Signed On 11-29-2024 20:29:[address] Ronnell Mueller Please click the below link to view image of tracing.
[2024-11-29 20:09] VITALS: BP 128/82
[2024-11-29 20:15] LABS: BASOPHILS # (AUTO) 0.1 X10'3 (0-0.2); BASOPHILS % (AUTO) 1.3 % (0-1); EOSINOPHILS # (AUTO) 0.1 X10'3 (0-0.9); EOSINOPHILS % (AUTO) 1.1 % (0-6); HEMATOCRIT 39.9 % (42.0-52.0); LYMPHOCYTES # (AUTO) 2.5 X10'3 (1.1-4.8); LYMPHOCYTES % (AUTO) 44.5 % (21-51); MEAN CORPUSCULAR HEMOGLOBIN 26.5 PG (27.0-31.0); MEAN CORPUSCULAR HGB CONC 32.6 g/dL (33.0-36.5); MEAN CORPUSCULAR VOLUME 81.4 FL (78-98); MEAN PLATELET VOLUME 7.5 FL (7.4-10.4); MONOCYTES # (AUTO) 0.6 X10'3 (0-0.9); MONOCYTES % (AUTO) 10.2 % (2-12); NEUTROPHILS # (AUTO) 2.4 X10'3 (1.8-7.7); NEUTROPHILS % (AUTO) 42.9 % (42-75); PLATELET COUNT 305 X10'3 (140-440); RED BLOOD COUNT 4.91 X10'6 (4.70-6.10); RED CELL DISTRIBUTION WIDTH 14.8 % (11.5-14.5); WHITE BLOOD COUNT 5.6 X10'3 (4.5-11.0)
[2024-11-29 20:36] LABS: ALBUMIN 3.6 G/DL (3.4-5.0); ANION GAP 8 (8-16); BLOOD UREA NITROGEN 14 MG/DL (7-18); CHLORIDE 107 MMOL/L (99-107); CREATININE 1.17 MG/DL (0.60-1.10); GLUCOSE 107 MG/DL (70-104); POTASSIUM 3.5 MMOL/L (3.5-5.1); PRO BRAIN NATRIURETIC PEPTIDE < 30 PG/ML (0-125); SODIUM 141 MMOL/L (135-145); TOTAL CARBON DIOXIDE 26.2 MMOL/L (24-32); eCRCL 94 ML/MIN; eGFR 84 ML/MIN
--- NOTE | 2024-11-29 20:45 | RADIOLOGY REPORT ---
Procedure: DI CHEST,SINGLE VIEW 11/29/2024 08:01 PM Indication: CP Comparison: DI CHEST,SINGLE VIEW on DOS: 11/15/24 TECHNIQUE: DI CHEST,SINGLE VIEW FINDINGS: The lungs are clear. The hard border is normal in size. No acute osseus abnormality. IMPRESSION: 1. No acute cardiopulmonary disease.
[2024-11-29 20:57] LABS: D-DIMER < 0.19 MG/L FEU (0-0.50)
[2024-11-29 21:36] VITALS: PULSE 87; RESP 15; O2SAT 96
== END 2024-11-29 21:39 | disposition home or self-care (01) ==
LOC: ER 19:52
DX: F15.10 Other stimulant abuse, uncomplicated (principal); R07.2 Precordial pain; Z88.8 Allergy status to other drugs, medicaments and biological substances
CPT/HCPCS: 36415; 71045; 80048; 83880; 84484; 85025; 85379; 93005; 99285

== ENCOUNTER 2024-12-13 19:18 | Emergency (ER) | payer MEDICAID ==
[~2024-12-13] VITALS: Ht 185.4 cm; Wt 82.0 kg
[2024-12-13 19:40] VITALS: BP 132/91; PULSE 84; RESP 18; TEMP 98.7; O2SAT 98
--- NOTE | 2024-12-13 20:19 | Physician Documentation ---
History of Present Illness ~ Chief Complaint: Cold, cough & congestion Stated Complaint: MUCUS/MAYBE COVID Time Seen by MD: 20:00 Primary Medical Doctor: [facility] Source: patient Mode of Arrival: Ambulatory Exam Limitations: no limitations HPI 39-year-old male with complaints of cough and congestion x1 week. Patient denies any chest pain shortness of breath wheezing or fevers. Patient was concerned that he had COVID. Patient denies being around anyone with similar symptoms. Patient denies any significant medical conditions including respiratory or cardiac. Medication Reconciliation Allergies: Coded Allergies: pseudoephedrine (Verified Allergy, Severe, ANGIOEDEMA, 12/13/24) Scheduled Albuterol Sulfate (Ventolin Hfa), 2 PUFFS INH Q4HPRN Albuterol Sulfate (Ventolin Hfa), 2 PUFFS INH Q4HPRN Fluticasone Propionate (Flonase), 2 SPRAYS BOTHNARES DAILY Gabapentin (Neurontin), 1 CAP PO Q8H Loratadine (Claritin), 1 CAP PO DAILY Prednisone* (Prednisone*), 2 TAB PO DAILY Tobramycin Sulfate/Dexameth (Tobradex Eye Drops), 5 ML OP Q6H Past Medical History Past Medical History: No Pertinent History, Asthma, Diabetes Past Surgical History: no surgical history Alcohol Use: None Drug Use: none Lives with: Family Lives In: Home Occupation: employed Review of Systems All Other Systems at this time: Reviewed and Negative Respiratory: Reports: see HPI Physical Exam Vital Signs: RN Vital Signs have been reviewed: Yes, Temperature: 98.7, Heart Rate: 84, Respiratory Rate: 18, BP: 132/91, Pulse Oximetry: 98, Weight: 82.000 Oxygen Flow Rate: 0 Physical Exam General: Alert, no apparent distress. HEENT: PERRL, EOMI, no injection, moist mucous membranes. Neck: Full range of motion. Respiratory: Lungs clear, no respiratory distress. Chest: No accessory muscle use. Cardiovascular: Regular rate and rhythm, no murmurs. Extremities: Normal range of motion, no deformity. Neurologic: Oriented x4. Psychiatric: Normal mood and affect. Skin: Normal color, warm and dry. No edema, no ecchymosis. Progress Results/Orders Results/Orders Vital Signs 12/13/24 19:40 Temp 98.7 Pulse 84 Resp 18 B/P (MAP) 132/91 Pulse Ox 98 O2 Flow Rate 0 Medical Decision Making Differential Dx:Considerations: Include: Allergic rhinitis, Influenza, Sinusitis, URI Departure Time of Disposition: 20:15 Disposition: 01 HOME / SELF CARE / HOMELESS Impression: Primary Impression: Acute bronchitis Additional Impression: Cough Condition: Stable Discharge Instructions: Upper Respiratory Infection, Adult Additional Instructions: Take medication as prescribed, rest, Tylenol and ibuprofen for mild aches and pains and fever. Monitor for any new or worsening symptoms of free to return to the ER. Follow up with primary care as well. Referrals: NO PRIMARY CARE PROVIDER (PCP) Prescriptions Guaifenesin/Dextromethorphan (Guaifenesin Dm Syrup) 100 Mg-10 Mg/5 Ml Syrup 5 ML PO Q8H for cough and congestion for 8 Days, #120 ML 0 Refills Prov: NIEVES TABOR NP 12/13/24 Albuterol Sulfate (Ventolin Hfa) 90 Mcg Hfa.aer.ad 2 PUFFS INH Q4HPRN PRN for wheezing for 30 Days, #18 GM 0 Refills Prov: NIEVES TABOR RESEARCH NUTRITIONIST 12/13/24 Education Educated: Patient Educated regarding: diagnosis, treatment, need for follow up Signature Scribe Signature: No Scribe Attestation: The note accurately reflects work and decisions made by me.Nieves Tabor - JJ 12/13/24 20:25 NIEVES TABOR RESEARCH NUTRITIONIST Dec 13, 2024 20:19
[2024-12-13] MEDS ORDERED: ALBU18HF2 INH (20:23)
[2024-12-13] MEDS ORDERED: GUAI237S56 PO (20:23)
== END 2024-12-13 20:36 | disposition home or self-care (01) ==
LOC: ER 19:19
DX: J20.9 Acute bronchitis, unspecified (principal); Z88.8 Allergy status to other drugs, medicaments and biological substances; Z79.899 Other long term (current) drug therapy
CPT/HCPCS: 99283